=== PATIENT | male | born 1995 | race Caucasian/White ===

== ENCOUNTER 2019-11-30 15:21 | Emergency (ER) | payer SELFPAY ==
[~2019-11-30] VITALS: Ht 175.3 cm; Wt 106.6 kg
[2019-11-30 15:32] VITALS: Ht 175.3 cm; Wt 106.6 kg
[2019-11-30] MEDS ORDERED: MEDROL DOSE PACK4 MG PO (19:04)
[2019-11-30] MEDS ORDERED: ZPAK PO (19:04)
[2019-11-30] MEDS ORDERED: MUCINEX DM ER1 EAC1 PO (19:04)
[2019-11-30 19:30] VITALS: BP 143/89
== END 2019-11-30 19:30 | disposition home or self-care (01) ==
LOC: D.ER 15:21
DX: J06.9 Acute upper respiratory infection, unspecified (principal); J40 Bronchitis, not specified as acute or chronic

== ENCOUNTER 2020-06-09 15:09 | Emergency (ER) | payer SELFPAY ==
[~2020-06-09] VITALS: Ht 175.3 cm; Wt 111.4 kg
[~2020-06-09 15:09] MED LIST: MEDROL DOSE PACK4 MG PO; MUCINEX DM ER1 EAC1 PO; ZPAK PO
[2020-06-09 15:16] VITALS: Ht 175.3 cm; Wt 111.4 kg
[2020-06-09] MEDS ORDERED: IBUPROFEN800 MG PO (16:13)
[2020-06-09] MEDS ORDERED: CYCLOBENZAPRINE10 MG PO (16:13)
[2020-06-09] MEDS ORDERED: ACETAMINOPHEN500 M1 PO (16:13)
[2020-06-09 16:47] VITALS: BP 122/64
== END 2020-06-09 16:47 | disposition home or self-care (01) ==
LOC: D.ER 15:09
DX: S89.92XA Unspecified injury of left lower leg, initial encounter (principal); W19.XXXA Unspecified fall, initial encounter; Y93.9 Activity, unspecified; Y92.9 Unspecified place or not applicable; Y99.0 Civilian activity done for income or pay; M25.562 Pain in left knee